=== PATIENT | male | born 1985 | race Caucasian/White ===

== ENCOUNTER 2020-07-16 19:34 | Emergency (ER) | payer MEDICAID ==
[~2020-07-16] VITALS: Ht 175.3 cm; Wt 104.5 kg
[~2020-07-16 19:34] MED LIST: BACI28OI9 TP; ESCI20TA29 PO; LIDO20SO PO; QUET25TA PO
[2020-07-16] MEDS ORDERED: normal saline 1000ml 1,000 ML IV ONE (20:50)
[2020-07-16] MEDS ORDERED: LORazepam 1 MG tablet PO ONE (20:50)
--- NOTE | 2020-07-16 21:28 | NUR ---
Patient sleeping comfortably on gurney, fluids infusing.
[2020-07-16 23:07] VITALS: BP 134/105
--- NOTE | 2020-07-16 23:07 | NUR ---
Patient never would give urine sample.
== END 2020-07-16 23:11 | disposition home or self-care (01) ==
LOC: ER 19:35
DX: S09.90XA Unspecified injury of head, initial encounter (principal); H53.8 Other visual disturbances; Z79.899 Other long term (current) drug therapy; W18.39XA Other fall on same level, initial encounter; Y93.89 Activity, other specified; Y92.89 Other specified places as the place of occurrence of the external cause; Y99.8 Other external cause status
CPT/HCPCS: 70450; 70486; 96360; 96361; 99285; J7030